=== PATIENT | female | born 1970 | race African-American/Black ===

== ENCOUNTER 2019-01-09 12:23 | Inpatient (IN) | payer MEDICARE, MEDICAID ==
[~2019-01-09] VITALS: Ht 162.6 cm; Wt 50.1 kg
[2019-01-09 13:41] LABS: BASOPHILS % 0.8 % (0.0-2.0); EOSINOPHILS % 1.8 % (0.0-5.0); HEMATOCRIT. 43.6 % (36.0-48.0); HEMOGLOBIN. 13.9 g/dL (12.0-16.0); LYMPHOCYTES % 17.9 % (20.0-50.0); MEAN CORPUSCULAR HEMOGLOBIN 29.9 pg (28.0-32.0); MEAN CORPUSCULAR VOLUME 93.6 fL (81.0-99.0); MEAN PLATELET VOLUME 8.6 fl (7.4-10.4); MONOCYTES % 7.8 % (2.0-8.0); NEUTROPHILS % 71.7 % (40.0-76.0); PLATELET 278 x1000/uL (130-400); RED BLOOD CELL COUNT 4.66 mill/uL (4.2-5.4); RED CELL DISTRIBUTION WIDTH 15.4 % (11.6-14.6)
[2019-01-09 13:47] LABS: CHLORIDE 104 mEq/L (98-107)
[2019-01-09 13:51] LABS: ETHANOL BLOOD < 10 mg/dL
[2019-01-09 14:11] LABS: HCG SCREEN NEGATIVE
[2019-01-09 15:02] LABS: BG BASE EXCESS 8.9 mmol/L (-2.0-2.0); BG CARBOXYHEMOGLOBIN 0.8 % (0.5-1.5); BG DEOXYHEMOGLOBIN 2.3 % (0.0-5.0); BG FRACTION INSPIRED OXYGEN 28; BG HCO3 ACT 41.7 mmol/L (22.0-26.0); BG METHEMOGLOBIN 0.4 % (0.0-1.5); BG OXYGEN SATURATION 97.7 % (92.0-98.5); BG OXYHEMOGLOBIN 96.5 % (94.0-97.0); BG PCO2 116.9 mmHg (35.0-45.0); BG PO2 114.2 mmHg (75.0-100.0); BG SAMPLE SITE RIGHT BRACHIAL; BG VENT MODE NASAL CANNULA
[2019-01-09] MEDS ORDERED: ALBUTEROL (0.083%) 2.5MG/3ML NEB HHN STA (15:13)
[2019-01-09] MEDS ORDERED: METHYLPREDNISOLONE SOD SUCC 125 MG/2 ML VIAL IV STA (15:13)
[2019-01-09 16:09] LABS: CLARITY URINE CLOUDY (CLEAR); COLOR URINE YELLOW (YELLOW); KETONES URINE TRACE (NEGATIVE); LEUKOCYTE ESTERASE URINE 2+ (NEGATIVE); NITRITE URINE NEGATIVE (NEGATIVE); OCCULT BLOOD URINE NEGATIVE (NEGATIVE); PH URINE 6.5 (4.5-8.0); PROTEIN URINE NEGATIVE (NEGATIVE); SPECIFIC GRAVITY URINE 1.027 (1.005-1.030)
[2019-01-09] MEDS ORDERED: SODIUM CHLORIDE 0.9% 1,000 ML IV ONE (16:15)
[2019-01-09 16:25] LABS: *AMPHETAMINES SCREEN URINE NEGATIVE (NEGATIVE); *BENZODIAZEPINES SCREEN URINE NEGATIVE (NEGATIVE); *COCAINE SCREEN URINE NEGATIVE (NEGATIVE)
[2019-01-09 16:26] LABS: CANNABINOID URINE SCREEN NEGATIVE (NEGATIVE); METHADONE URINE SCREEN NEGATIVE (NEGATIVE); OPIATES URINE SCREEN NEGATIVE (NEGATIVE); PHENCYCLIDINE URINE SCREEN NEGATIVE (NEGATIVE)
[2019-01-09 16:28] LABS: *BARBITURATES SCREEN URINE NEGATIVE (NEGATIVE)
[2019-01-09] MEDS ORDERED: CEFTRIAXONE 1 G PREMIX 50 ML IV ONE (16:30)
[2019-01-09 16:50] LABS: BG BILEVEL POS AIRWAY PRESSURE 18/5; BG CARBOXYHEMOGLOBIN 0.7 % (0.5-1.5); BG DEOXYHEMOGLOBIN 0.4 % (0.0-5.0); BG FRACTION INSPIRED OXYGEN 50; BG HCO3 ACT 31.5 mmol/L (22.0-26.0); BG METHEMOGLOBIN 0.3 % (0.0-1.5); BG OXYGEN SATURATION 99.6 % (92.0-98.5); BG OXYHEMOGLOBIN 98.6 % (94.0-97.0); BG PCO2 49.5 mmHg (35.0-45.0); BG PH 7.421 (7.350-7.450); BG PO2 315.4 mmHg (75.0-100.0); BG SAMPLE SITE RIGHT BRACHIAL; BG TOTAL HEMOGLOBIN 12.1 g/dL (12.0-18.0); BG VENT MODE MASK - BIPAP
[2019-01-09] MEDS ORDERED: IPRATROPIUM/ALBUTEROL 0.5-3(2.5)MG/3ML NEB INH SCH (17:45)
[2019-01-09] MEDS ORDERED: NA PHOS,M-B/NA PHOS,DI-BA ENEMA 118ML PR PRN (17:45)
[2019-01-09] MEDS ORDERED: IPRATROPIUM/ALBUTEROL 0.5-3(2.5)MG/3ML NEB INH PRN (17:45)
[2019-01-09] MEDS ORDERED: MAGNESIUM/ALUMINUM HYDROXIDE/SIMETHICONE 30ML UDC PO PRN (17:45)
[2019-01-09] MEDS ORDERED: GUAIFENESIN 200MG/10ML SUGAR FREE UDC PO PRN (17:45)
[2019-01-09] MEDS ORDERED: ONDANSETRON HCL 4MG/2ML INJ IV PRN (17:45)
[2019-01-09] MEDS: METHYLPREDNISOLONE SOD SUCC 125 MG/2 ML VIAL IV SCH (22:00)
[2019-01-09] MEDS: SODIUM CHLORIDE 0.9% INJ 3ML FLUSH IVF SCH (22:00)
[2019-01-09 23:48] LABS: CREATINE KINASE 22 IU/L (26-192)
[2019-01-09 23:55] LABS: CREATINE KINASE MB FRACTION 1.2 ng/mL (0.5-3.6)
[2019-01-10 05:23] LABS: CHLORIDE 105 mEq/L (98-107)
[2019-01-10 05:34] LABS: LDL CHOLESTEROL 61 mg/dL (5-100)
[2019-01-10 05:35] LABS: CREATINE KINASE 24 IU/L (26-192)
[2019-01-10 05:37] LABS: HDL CHOLESTEROL 51 mg/dL (40-59)
[2019-01-10 05:40] LABS: CREATINE KINASE MB FRACTION 1.1 ng/mL (0.5-3.6)
[2019-01-10] MEDS: SODIUM CHLORIDE 0.9% INJ 3ML FLUSH IVF SCH ×3 (06:00→22:00)
[2019-01-10 06:16] LABS: BASOPHILS % 0.4 % (0.0-2.0); EOSINOPHILS % 0.6 % (0.0-5.0); HEMATOCRIT. 32.7 % (36.0-48.0); LYMPHOCYTES % 24.8 % (20.0-50.0); MEAN CORPUSCULAR HEMOGLOBIN 29.5 pg (28.0-32.0); MEAN CORPUSCULAR VOLUME 90.8 fL (81.0-99.0); MEAN PLATELET VOLUME 7.8 fl (7.4-10.4); MONOCYTES % 8.4 % (2.0-8.0); NEUTROPHILS % 65.8 % (40.0-76.0); PLATELET 250 x1000/uL (130-400); RED BLOOD CELL COUNT 3.61 mill/uL (4.2-5.4); RED CELL DISTRIBUTION WIDTH 15.1 % (11.6-14.6)
[2019-01-10 06:18] LABS: HEMOGLOBIN. 10.7 g/dL (12.0-16.0)
[2019-01-10 10:23] LABS: BG BASE EXCESS 5.2 mmol/L (-2.0-2.0); BG CARBOXYHEMOGLOBIN 0.1 % (0.5-1.5); BG DEOXYHEMOGLOBIN 0.7 % (0.0-5.0); BG FRACTION INSPIRED OXYGEN 38; BG HCO3 ACT 30.3 mmol/L (22.0-26.0); BG METHEMOGLOBIN 0.4 % (0.0-1.5); BG OXYGEN SATURATION 99.3 % (92.0-98.5); BG OXYHEMOGLOBIN 98.8 % (94.0-97.0); BG PCO2 46.6 mmHg (35.0-45.0); BG PH 7.431 (7.350-7.450); BG PO2 226.5 mmHg (75.0-100.0); BG SAMPLE SITE RIGHT BRACHIAL; BG TOTAL HEMOGLOBIN 11.5 g/dL (12.0-18.0); BG VENT MODE NASAL CANNULA
[2019-01-10] MEDS: METHYLPREDNISOLONE SOD SUCC 125 MG/2 ML VIAL IV SCH ×4 (12:00→22:00)
[2019-01-10] MEDS ORDERED: IPRATROPIUM/ALBUTEROL 0.5-3(2.5)MG/3ML NEB HHN SCH (16:00)
[2019-01-10] MEDS: ACETAMINOPHEN 325MG TABLET PO PRN ×2 (16:15→20:22)
[2019-01-10] MEDS ORDERED: POTASSIUM CHLORIDE 20MEQ TABLET SR PO PRN (17:30)
[2019-01-10] MEDS ORDERED: POTASSIUM CHLORIDE 20MEQ TABLET SR PO NR (20:00)
[2019-01-10 21:30] VITALS: BP 125/99
[2019-01-10] MEDS ORDERED: GABA-531 PO (21:39)
[2019-01-10] MEDS ORDERED: ABIL10 MT (21:39)
[2019-01-10] MEDS ORDERED: DIVA500T3 PO (21:39)
[2019-01-10] MEDS ORDERED: TRAZ-213 MT (21:39)
[2019-01-10] MEDS: TRAZODONE HCL 50MG TABLET PO SCH (23:10)
[2019-01-10] MEDS: GABAPENTIN 300MG CAPSULE PO SCH (23:10)
[2019-01-10 23:42] VITALS: BP 128/78
[2019-01-11] VITALS: BP 126/84
[2019-01-11] MEDS: IPRATROPIUM/ALBUTEROL 0.5-3(2.5)MG/3ML NEB HHN SCH ×2 (00:25→10:20)
[2019-01-11 04:00] VITALS: BP_SYST 115; BP_SYST 128; BP_DIAS 73; BP_DIAS 86
[2019-01-11] MEDS: METHYLPREDNISOLONE SOD SUCC 125 MG/2 ML VIAL IV SCH ×2 (04:47→09:13)
[2019-01-11] MEDS: SODIUM CHLORIDE 0.9% INJ 3ML FLUSH IVF SCH ×3 (06:26→21:59)
[2019-01-11 08:00] VITALS: BP 118/77
[2019-01-11 08:42] LABS: BG BASE EXCESS 5.7 mmol/L (-2.0-2.0); BG CARBOXYHEMOGLOBIN 0.3 % (0.5-1.5); BG DEOXYHEMOGLOBIN 3.7 % (0.0-5.0); BG FRACTION INSPIRED OXYGEN 21; BG HCO3 ACT 31.6 mmol/L (22.0-26.0); BG METHEMOGLOBIN 0.6 % (0.0-1.5); BG OXYGEN SATURATION 96.3 % (92.0-98.5); BG OXYHEMOGLOBIN 95.4 % (94.0-97.0); BG PCO2 51.4 mmHg (35.0-45.0); BG PH 7.406 (7.350-7.450); BG PO2 85.4 mmHg (75.0-100.0); BG SAMPLE SITE LEFT BRACHIAL; BG TOTAL HEMOGLOBIN 12.5 g/dL (12.0-18.0); BG VENT MODE ROOM AIR
[2019-01-11] MEDS ORDERED: ARIPIPRAZOLE 10MG TABLET PO SCH (09:00)
[2019-01-11] MEDS: DIVALPROEX SODIUM 250MG DR TABLET PO SCH ×2 (09:13→21:58)
[2019-01-11] MEDS: GABAPENTIN 300MG CAPSULE PO SCH ×2 (09:13→19:19)
[2019-01-11 12:00] VITALS: BP 128/84
[2019-01-11 13:16] LABS: HEMOGLOBIN. 11.9 g/dL (12.0-16.0); MEAN CORPUSCULAR HEMOGLOBIN 29.4 pg (28.0-32.0); MEAN CORPUSCULAR VOLUME 91.6 fL (81.0-99.0); MEAN PLATELET VOLUME 8.7 fl (7.4-10.4); PLATELET 282 x1000/uL (130-400); RED BLOOD CELL COUNT 4.04 mill/uL (4.2-5.4); RED CELL DISTRIBUTION WIDTH 15.3 % (11.6-14.6)
[2019-01-11 13:22] LABS: CHLORIDE 102 mEq/L (98-107)
[2019-01-11] MEDS: CEFTRIAXONE 1 G PREMIX 50 ML IV SCH (13:43)
[2019-01-11] MEDS: IPRATROPIUM BROMIDE (0.02%) 0.5MG/2.5ML NEB HHN SCH ×2 (15:34→21:11)
[2019-01-11 16:00] VITALS: BP 116/83
[2019-01-11] MEDS ORDERED: IOHEXOL-350 100 ML BOTTLE ONE (18:36)
[2019-01-11 20:00] VITALS: BP 120/76
[2019-01-11 20:09] LABS: CLARITY URINE CLEAR (CLEAR); COLOR URINE YELLOW (YELLOW); KETONES URINE NEGATIVE (NEGATIVE); LEUKOCYTE ESTERASE URINE 2+ (NEGATIVE); NITRITE URINE NEGATIVE (NEGATIVE); OCCULT BLOOD URINE NEGATIVE (NEGATIVE); PROTEIN URINE NEGATIVE (NEGATIVE); SPECIFIC GRAVITY URINE 1.017 (1.005-1.030); UROBILINOGEN URINE 0.2 E.U./dL (0.2-1.0)
[2019-01-11 21:13] LABS: PLATELET ESTIMATE NORMAL
[2019-01-11] MEDS: METHYLPREDNISOLONE SOD SUCC 40 MG/ML VIAL IV SCH (21:58)
[2019-01-11] MEDS: TRAZODONE HCL 50MG TABLET PO SCH (21:59)
[2019-01-12] VITALS: BP 112/71
[2019-01-12] MEDS: IPRATROPIUM BROMIDE (0.02%) 0.5MG/2.5ML NEB HHN SCH ×4 (00:59→21:30)
[2019-01-12 04:00] VITALS: BP 130/82
[2019-01-12] MEDS: SODIUM CHLORIDE 0.9% INJ 3ML FLUSH IVF SCH ×3 (06:07→22:28)
[2019-01-12 08:00] VITALS: BP 121/81
[2019-01-12 08:45] LABS: BASOPHILS % 0.2 % (0.0-2.0); HEMATOCRIT. 36.7 % (36.0-48.0); HEMOGLOBIN. 11.9 g/dL (12.0-16.0); LYMPHOCYTES % 15.6 % (20.0-50.0); MEAN CORPUSCULAR HEMOGLOBIN 29.8 pg (28.0-32.0); MEAN CORPUSCULAR VOLUME 91.7 fL (81.0-99.0); MEAN PLATELET VOLUME 8.2 fl (7.4-10.4); MONOCYTES % 6.2 % (2.0-8.0); PLATELET 261 x1000/uL (130-400); RED CELL DISTRIBUTION WIDTH 14.7 % (11.6-14.6)
[2019-01-12] MEDS: GABAPENTIN 300MG CAPSULE PO SCH ×2 (08:56→15:55)
[2019-01-12] MEDS: ARIPIPRAZOLE 10MG TABLET PO SCH (08:56)
[2019-01-12] MEDS: METHYLPREDNISOLONE SOD SUCC 40 MG/ML VIAL IV SCH (08:57)
[2019-01-12] MEDS: DIVALPROEX SODIUM 250MG DR TABLET PO SCH ×2 (09:02→20:47)
[2019-01-12 09:06] LABS: CHLORIDE 100 mEq/L (98-107)
[2019-01-12] MEDS: ACETAMINOPHEN 325MG TABLET PO PRN ×3 (09:06→20:48)
[2019-01-12 12:00] VITALS: BP 117/75
[2019-01-12] MEDS: CEFTRIAXONE 1 G PREMIX 50 ML IV SCH (12:48)
[2019-01-12] MEDS: DOCUSATE SODIUM 100MG CAPSULE PO PRN (13:32)
[2019-01-12] MEDS ORDERED: IPRA3AMP9 INH (14:49)
[2019-01-12] MEDS ORDERED: P20 PO (14:49)
[2019-01-12] MEDS: METOPROLOL TARTRATE 25MG TABLET PO SCH ×2 (15:56→20:47)
[2019-01-12 16:00] VITALS: BP 135/85
[2019-01-12 20:00] VITALS: BP 118/81
[2019-01-12] MEDS: TRAZODONE HCL 50MG TABLET PO SCH (20:47)
[2019-01-12] MEDS: MEGESTROL ACETATE 400 MG/10 ML UDC PO SCH (20:51)
[2019-01-13] VITALS (7 sets, daily range): BP systolic 93–126; BP diastolic 57–82
[2019-01-13] MEDS: ACETAMINOPHEN 325MG TABLET PO PRN ×3 (00:39→23:24)
[2019-01-13] MEDS: IPRATROPIUM BROMIDE (0.02%) 0.5MG/2.5ML NEB HHN SCH ×2 (01:28→21:56)
[2019-01-13] MEDS: MEGESTROL ACETATE 400 MG/10 ML UDC PO SCH ×4 (03:41→20:25)
[2019-01-13] MEDS: SODIUM CHLORIDE 0.9% INJ 3ML FLUSH IVF SCH ×3 (06:42→21:49)
[2019-01-13 07:21] LABS: VITAMIN B12 SERUM 469 pg/mL (211-911)
[2019-01-13] MEDS: METOPROLOL TARTRATE 25MG TABLET PO SCH ×2 (09:00→20:26)
[2019-01-13] MEDS: PREDNISONE 20MG TABLET PO SCH (10:32)
[2019-01-13] MEDS: GABAPENTIN 300MG CAPSULE PO SCH ×2 (10:32→18:24)
[2019-01-13] MEDS: DIVALPROEX SODIUM 250MG DR TABLET PO SCH ×2 (10:33→20:26)
[2019-01-13] MEDS: ARIPIPRAZOLE 10MG TABLET PO SCH (10:33)
[2019-01-13] MEDS: CEFTRIAXONE 1 G PREMIX 50 ML IV SCH (13:35)
[2019-01-13] MEDS ORDERED: OLANZAPINE 10MG TABLET PO SCH (15:45)
[2019-01-13] MEDS ORDERED: METOPROLOL TARTRATE 25MG TABLET PO NR (17:00)
[2019-01-13 20:00] LABS: BASOPHILS % 0.4 % (0.0-2.0); HEMATOCRIT. 38.6 % (36.0-48.0); HEMOGLOBIN. 12.5 g/dL (12.0-16.0); LYMPHOCYTES % 14.7 % (20.0-50.0); MEAN CORPUSCULAR HEMOGLOBIN 29.4 pg (28.0-32.0); MEAN CORPUSCULAR VOLUME 90.7 fL (81.0-99.0); MEAN PLATELET VOLUME 8.1 fl (7.4-10.4); MONOCYTES % 6.8 % (2.0-8.0); NEUTROPHILS % 78.1 % (40.0-76.0); PLATELET 261 x1000/uL (130-400); RED BLOOD CELL COUNT 4.26 mill/uL (4.2-5.4); RED CELL DISTRIBUTION WIDTH 14.7 % (11.6-14.6)
[2019-01-13 20:05] LABS: CHLORIDE 100 mEq/L (98-107)
[2019-01-13 20:14] LABS: INR 1.1; PROTHROMBIN TIME 10.8 sec (9.1-11.1)
[2019-01-13] MEDS: TRAZODONE HCL 50MG TABLET PO SCH (20:27)
[2019-01-13] MEDS: DIPHENHYDRAMINE 50MG/ML VIAL IV PRN (23:12)
[2019-01-14] VITALS: BP 119/74
[2019-01-14] MEDS: IPRATROPIUM BROMIDE (0.02%) 0.5MG/2.5ML NEB HHN SCH ×4 (01:57→20:24)
[2019-01-14] MEDS: MEGESTROL ACETATE 400 MG/10 ML UDC PO SCH ×4 (02:31→20:18)
[2019-01-14 04:00] VITALS: BP 122/82
[2019-01-14 07:34] LABS: BASOPHILS % 0.3 % (0.0-2.0); EOSINOPHILS % 0.3 % (0.0-5.0); HEMATOCRIT. 38.1 % (36.0-48.0); HEMOGLOBIN. 12.5 g/dL (12.0-16.0); MEAN CORPUSCULAR HEMOGLOBIN 29.4 pg (28.0-32.0); MEAN CORPUSCULAR VOLUME 89.6 fL (81.0-99.0); MONOCYTES % 7.4 % (2.0-8.0); PLATELET 248 x1000/uL (130-400); RED BLOOD CELL COUNT 4.26 mill/uL (4.2-5.4); RED CELL DISTRIBUTION WIDTH 14.4 % (11.6-14.6)
[2019-01-14 07:58] LABS: CHLORIDE 102 mEq/L (98-107)
[2019-01-14 08:00] VITALS: BP 132/92
[2019-01-14] MEDS: TRAZODONE HCL 50MG TABLET PO SCH (09:34)
[2019-01-14] MEDS: ACETAMINOPHEN 325MG TABLET PO PRN ×2 (09:35→17:47)
[2019-01-14] MEDS: ARIPIPRAZOLE 10MG TABLET PO SCH (09:35)
[2019-01-14] MEDS: DIVALPROEX SODIUM 250MG DR TABLET PO SCH ×2 (09:36→20:47)
[2019-01-14] MEDS: DOCUSATE SODIUM 100MG CAPSULE PO PRN (09:37)
[2019-01-14] MEDS: PREDNISONE 20MG TABLET PO SCH (09:37)
[2019-01-14] MEDS: CLONIDINE 0.1MG TABLET PO PRN (09:37)
[2019-01-14] MEDS: METOPROLOL TARTRATE 25MG TABLET PO SCH ×2 (09:38→20:47)
[2019-01-14] MEDS: GABAPENTIN 300MG CAPSULE PO SCH ×2 (09:41→18:40)
[2019-01-14 12:00] VITALS: BP 128/89
[2019-01-14] MEDS: SODIUM CHLORIDE 0.9% INJ 3ML FLUSH IVF SCH (14:00)
[2019-01-14] MEDS ORDERED: POTASSIUM CHLORIDE 20MEQ TABLET SR PO PRN (16:00)
[2019-01-14] MEDS ORDERED: BARIUM SULFATE 176 GM SUSP.RECON ONE (16:02)
[2019-01-14 16:33] VITALS: BP 112/63
[2019-01-14 20:00] VITALS: BP 114/75
[2019-01-15] VITALS: BP 118/73
[2019-01-15] MEDS: IPRATROPIUM BROMIDE (0.02%) 0.5MG/2.5ML NEB HHN SCH ×2 (02:18→20:57)
[2019-01-15] MEDS: MEGESTROL ACETATE 400 MG/10 ML UDC PO SCH ×4 (02:30→20:30)
[2019-01-15 04:00] VITALS: BP 121/71
[2019-01-15 08:00] VITALS: BP 134/83
[2019-01-15] MEDS: FAMOTIDINE 20MG/2ML VIAL IV SCH ×2 (09:00→22:45)
[2019-01-15] MEDS: DIVALPROEX SODIUM 250MG DR TABLET PO SCH ×2 (09:00→21:00)
[2019-01-15] MEDS: METOPROLOL TARTRATE 25MG TABLET PO SCH ×2 (09:00→21:00)
[2019-01-15] MEDS: ARIPIPRAZOLE 10MG TABLET PO SCH (09:00)
[2019-01-15] MEDS: PREDNISONE 20MG TABLET PO SCH (09:00)
[2019-01-15] MEDS: GABAPENTIN 300MG CAPSULE PO SCH ×2 (09:00→17:00)
[2019-01-15] MEDS ORDERED: SKIN ADHESIVE 0.7 GM EA TOP ONE (09:07)
[2019-01-15] MEDS ORDERED: BUPIVACAINE HCL/PF 0.5% (5MG/ML) 10ML ONE (09:07)
[2019-01-15] MEDS ORDERED: FENTANYL CITRATE/PF 50MCG/ML 2ML VIAL ONE (09:12)
[2019-01-15] MEDS ORDERED: MIDAZOLAM HCL 2 MG/2 ML VIAL ONE (09:15)
[2019-01-15] MEDS ORDERED: SUCCINYLCHOLINE CHLORIDE 200MG/10ML IV ONE ×2 (09:32→10:27)
[2019-01-15] MEDS: CEFAZOLIN 1000MG PREMIX 50 ML IV SCH ×2 (10:00→17:40)
[2019-01-15] MEDS: DEXT 5%/0.45% NACL KCL 20MEQ/L 1,000 ML IV SCH ×2 (10:00→14:48)
[2019-01-15] MEDS: METRONIDAZOLE 500 MG PREMIX 100 ML IV SCH ×2 (10:00→17:41)
[2019-01-15] MEDS ORDERED: NALOXONE HCL 0.4 MG/ML 1ML VIAL ONE (10:38)
[2019-01-15] MEDS ORDERED: KETOROLAC 30MG/ML VIAL IV PRN (10:45)
[2019-01-15] MEDS: ACETAMINOPHEN 500MG TABLET PO SCH ×2 (10:45→17:42)
[2019-01-15] MEDS ORDERED: ONDANSETRON HCL 4MG/2ML INJ IV PRN (10:45)
[2019-01-15] MEDS: HYDROMORPHONE HCL/PF 2MG/ML CPJ IV PRN ×4 (10:56→12:43)
[2019-01-15] MEDS: SODIUM CHLORIDE 0.9% INJ 3ML FLUSH IVF SCH (14:53)
[2019-01-15 20:00] VITALS: BP 120/75
[2019-01-15] MEDS: MORPHINE SULFATE 4 MG/ML CPJ (NOT FOR IM USE) IV PRN (20:06)
[2019-01-15] MEDS: DIPHENHYDRAMINE 50MG/ML VIAL IV PRN (20:20)
[2019-01-15] MEDS: TRAZODONE HCL 50MG TABLET PO SCH (21:00)
[2019-01-16] VITALS: BP 120/84
[2019-01-16] MEDS: MORPHINE SULFATE 4 MG/ML CPJ (NOT FOR IM USE) IV PRN ×2 (00:07→09:23)
[2019-01-16] MEDS: DIPHENHYDRAMINE 50MG/ML VIAL IV PRN (00:12)
[2019-01-16] MEDS: IPRATROPIUM BROMIDE (0.02%) 0.5MG/2.5ML NEB HHN SCH ×4 (01:09→22:21)
[2019-01-16] MEDS: CEFAZOLIN 1000MG PREMIX 50 ML IV SCH ×3 (01:24→18:04)
[2019-01-16] MEDS: ACETAMINOPHEN 500MG TABLET PO SCH ×2 (02:00→09:24)
[2019-01-16] MEDS: MEGESTROL ACETATE 400 MG/10 ML UDC PO SCH ×4 (02:30→20:37)
[2019-01-16 04:00] VITALS: BP 130/84
[2019-01-16] MEDS: DEXT 5%/0.45% NACL KCL 20MEQ/L 1,000 ML IV SCH ×2 (04:48→16:27)
[2019-01-16] MEDS: METRONIDAZOLE 500 MG PREMIX 100 ML IV SCH ×2 (04:49→14:24)
[2019-01-16 08:00] VITALS: BP 123/90
[2019-01-16] MEDS: PREDNISONE 20MG TABLET PO SCH (09:21)
[2019-01-16] MEDS: GABAPENTIN 300MG CAPSULE PO SCH ×2 (09:22→16:19)
[2019-01-16] MEDS: DIVALPROEX SODIUM 250MG DR TABLET PO SCH ×2 (09:22→20:37)
[2019-01-16] MEDS: ARIPIPRAZOLE 10MG TABLET PO SCH (09:23)
[2019-01-16] MEDS: FAMOTIDINE 20MG/2ML VIAL IV SCH ×2 (09:23→20:38)
[2019-01-16] MEDS: METOPROLOL TARTRATE 25MG TABLET PO SCH ×2 (09:24→20:37)
[2019-01-16] MEDS: ACETAMINOPHEN 325MG TABLET PO PRN (10:22)
[2019-01-16 12:00] VITALS: BP 120/79
[2019-01-16 16:00] VITALS: BP 118/68
[2019-01-16] MEDS ORDERED: OLANZAPINE 5MG TABLET PO SCH (17:00)
[2019-01-16 20:00] VITALS: BP 122/81
[2019-01-16] MEDS: TRAZODONE HCL 50MG TABLET PO SCH (20:36)
[2019-01-16] MEDS: SODIUM CHLORIDE 0.9% INJ 3ML FLUSH IVF SCH (21:31)
[2019-01-17] MEDS: ONDANSETRON HCL 4MG/2ML INJ IV PRN ×3 (00:04→21:03)
[2019-01-17] MEDS: MORPHINE SULFATE 4 MG/ML CPJ (NOT FOR IM USE) IV PRN ×2 (00:05→21:05)
[2019-01-17 00:31] VITALS: BP 123/78
[2019-01-17] MEDS: DEXT 5%/0.45% NACL KCL 20MEQ/L 1,000 ML IV SCH ×3 (01:12→23:13)
[2019-01-17] MEDS: CEFAZOLIN 1000MG PREMIX 50 ML IV SCH ×3 (01:12→18:49)
[2019-01-17] MEDS: ACETAMINOPHEN 500MG TABLET PO SCH ×3 (01:13→18:00)
[2019-01-17] MEDS: MEGESTROL ACETATE 400 MG/10 ML UDC PO SCH ×4 (02:30→21:03)
[2019-01-17] MEDS: IPRATROPIUM BROMIDE (0.02%) 0.5MG/2.5ML NEB HHN SCH ×3 (03:13→14:57)
[2019-01-17 04:00] VITALS: BP 120/82
[2019-01-17] MEDS: SODIUM CHLORIDE 0.9% INJ 3ML FLUSH IVF SCH ×3 (05:28→23:12)
[2019-01-17 08:00] VITALS: BP 130/84
[2019-01-17] MEDS: ARIPIPRAZOLE 10MG TABLET PO SCH (09:26)
[2019-01-17] MEDS: PREDNISONE 20MG TABLET PO SCH (09:26)
[2019-01-17] MEDS: FAMOTIDINE 20MG/2ML VIAL IV SCH ×2 (09:26→21:03)
[2019-01-17] MEDS: GABAPENTIN 300MG CAPSULE PO SCH ×2 (09:26→17:00)
[2019-01-17] MEDS: DIVALPROEX SODIUM 250MG DR TABLET PO SCH ×2 (09:26→21:03)
[2019-01-17] MEDS: METOPROLOL TARTRATE 25MG TABLET PO SCH ×2 (09:34→21:04)
[2019-01-17 12:00] VITALS: BP 125/81
[2019-01-17] MEDS ORDERED: DIGOXIN 500MCG/2ML AMP IV SCH (14:00)
[2019-01-17 14:36] LABS: HEMATOCRIT. 36.5 % (36.0-48.0); HEMOGLOBIN. 11.9 g/dL (12.0-16.0); MEAN CORPUSCULAR HEMOGLOBIN 29.9 pg (28.0-32.0); MEAN CORPUSCULAR VOLUME 91.6 fL (81.0-99.0); MEAN PLATELET VOLUME 8.3 fl (7.4-10.4); PLATELET 209 x1000/uL (130-400); RED BLOOD CELL COUNT 3.99 mill/uL (4.2-5.4); RED CELL DISTRIBUTION WIDTH 14.5 % (11.6-14.6)
[2019-01-17 16:00] VITALS: BP 118/74
[2019-01-17 16:45] LABS: INR 1.1; PROTHROMBIN TIME 10.7 sec (9.1-11.1)
[2019-01-17 20:00] VITALS: BP 128/94
[2019-01-17] MEDS: TRAZODONE HCL 50MG TABLET PO SCH (21:03)
[2019-01-17 21:10] LABS: CHLORIDE 101 mEq/L (98-107)
[2019-01-17] MEDS ORDERED: SODIUM CHLORIDE 0.9% 1000ML BAG (SEPSIS BOLUS) IV NR (22:30)
[2019-01-17 23:05] LABS: CLARITY URINE CLEAR (CLEAR); COLOR URINE YELLOW (YELLOW); KETONES URINE NEGATIVE (NEGATIVE); LEUKOCYTE ESTERASE URINE 2+ (NEGATIVE); NITRITE URINE NEGATIVE (NEGATIVE); OCCULT BLOOD URINE NEGATIVE (NEGATIVE); PROTEIN URINE NEGATIVE (NEGATIVE); SPECIFIC GRAVITY URINE 1.022 (1.005-1.030); UROBILINOGEN URINE 0.2 E.U./dL (0.2-1.0)
[2019-01-17] MEDS: METOCLOPRAMIDE HCL 10MG/2ML VIAL IV SCH (23:12)
[2019-01-18] VITALS (7 sets, daily range): BP systolic 135–148; BP diastolic 77–89
[2019-01-18] MEDS: ACETAMINOPHEN 500MG TABLET PO SCH ×2 (01:00→11:44)
[2019-01-18] MEDS: CEFAZOLIN 1000MG PREMIX 50 ML IV SCH ×2 (01:00→12:10)
[2019-01-18] MEDS: MEGESTROL ACETATE 400 MG/10 ML UDC PO SCH ×2 (01:52→11:35)
[2019-01-18] MEDS: SODIUM CHLORIDE 0.9% INJ 3ML FLUSH IVF SCH ×3 (05:07→23:44)
[2019-01-18] MEDS: METOCLOPRAMIDE HCL 10MG/2ML VIAL IV SCH ×2 (05:07→13:03)
[2019-01-18 05:29] LABS: PLATELET ESTIMATE NORMAL
[2019-01-18 06:56] LABS: HEMATOCRIT. 38.5 % (36.0-48.0); HEMOGLOBIN. 12.3 g/dL (12.0-16.0); MEAN CORPUSCULAR HEMOGLOBIN 29.3 pg (28.0-32.0); MEAN CORPUSCULAR VOLUME 91.4 fL (81.0-99.0); MEAN PLATELET VOLUME 9.5 fl (7.4-10.4); PLATELET 232 x1000/uL (130-400); RED BLOOD CELL COUNT 4.21 mill/uL (4.2-5.4); RED CELL DISTRIBUTION WIDTH 14.1 % (11.6-14.6)
[2019-01-18 07:44] LABS: CHLORIDE 100 mEq/L (98-107)
[2019-01-18] MEDS: IPRATROPIUM BROMIDE (0.02%) 0.5MG/2.5ML NEB HHN SCH ×3 (09:18→20:58)
[2019-01-18] MEDS: DIVALPROEX SODIUM 250MG DR TABLET PO SCH ×2 (11:17→20:56)
[2019-01-18] MEDS: ARIPIPRAZOLE 10MG TABLET PO SCH (11:19)
[2019-01-18] MEDS: GABAPENTIN 300MG CAPSULE PO SCH (11:19)
[2019-01-18] MEDS: FAMOTIDINE 20MG/2ML VIAL IV SCH (11:21)
[2019-01-18] MEDS: METOPROLOL TARTRATE 25MG TABLET PO SCH (11:35)
[2019-01-18 11:58] LABS: PLATELET ESTIMATE NORMAL
[2019-01-18] MEDS ORDERED: OLAN10TA3 PO (13:24)
[2019-01-18] MEDS: DEXT 5%/0.45% NACL KCL 20MEQ/L 1,000 ML IV SCH (14:44)
[2019-01-18] MEDS: OLANZAPINE 10MG TABLET PO SCH (14:49)
[2019-01-18 15:19] LABS: BG BASE EXCESS 4.9 mmol/L (-2.0-2.0); BG CARBOXYHEMOGLOBIN 0.9 % (0.5-1.5); BG DEOXYHEMOGLOBIN 10.1 % (0.0-5.0); BG FRACTION INSPIRED OXYGEN 21; BG HCO3 ACT 32.1 mmol/L (22.0-26.0); BG METHEMOGLOBIN 0.4 % (0.0-1.5); BG OXYGEN SATURATION 89.8 % (92.0-98.5); BG OXYHEMOGLOBIN 88.6 % (94.0-97.0); BG PCO2 58.6 mmHg (35.0-45.0); BG PH 7.356 (7.350-7.450); BG PO2 58.4 mmHg (75.0-100.0); BG SAMPLE SITE RIGHT BRACHIAL; BG TOTAL HEMOGLOBIN 13.5 g/dL (12.0-18.0); BG VENT MODE ROOM AIR
[2019-01-18] MEDS ORDERED: METO-539 MT (15:40)
[2019-01-18] MEDS ORDERED: ATROV INH (15:43)
[2019-01-18] MEDS ORDERED: P20 MT (15:44)
[2019-01-18] MEDS ORDERED: DIPHENHYDRAMINE 50MG/ML VIAL IM PRN (15:45)
[2019-01-18] MEDS: PANTOPRAZOLE 40MG DR TABLET PO SCH (19:21)
[2019-01-18] MEDS: ONDANSETRON HCL 4MG/2ML INJ IV PRN (19:47)
[2019-01-18] MEDS ORDERED: DIGOXIN 500MCG/2ML AMP IV SCH (20:30)
[2019-01-18] MEDS: TRAZODONE HCL 50MG TABLET PO SCH (20:56)
[2019-01-18] MEDS: METOPROLOL TARTRATE 50MG TABLET PO SCH (20:57)
[2019-01-18] MEDS: METOCLOPRAMIDE HCL 5MG TABLET PO SCH (23:43)
[2019-01-19] VITALS (7 sets, daily range): BP systolic 97–149; BP diastolic 61–95
[2019-01-19] MEDS: IPRATROPIUM BROMIDE (0.02%) 0.5MG/2.5ML NEB HHN SCH ×4 (01:21→19:57)
[2019-01-19] MEDS: ACETAMINOPHEN 500MG TABLET PO SCH ×3 (02:00→17:57)
[2019-01-19] MEDS: METOCLOPRAMIDE HCL 5MG TABLET PO SCH ×3 (05:31→18:00)
[2019-01-19] MEDS: SODIUM CHLORIDE 0.9% INJ 3ML FLUSH IVF SCH ×3 (05:31→21:37)
[2019-01-19] MEDS: CLONIDINE 0.1MG TABLET PO PRN (06:48)
[2019-01-19] MEDS: ACETAMINOPHEN 325MG TABLET PO PRN (06:49)
[2019-01-19 06:52] LABS: BASOPHILS % 0.1 % (0.0-2.0); EOSINOPHILS % 0.5 % (0.0-5.0); HEMATOCRIT. 40.8 % (36.0-48.0); HEMOGLOBIN. 13.5 g/dL (12.0-16.0); LYMPHOCYTES % 8.4 % (20.0-50.0); MEAN CORPUSCULAR HEMOGLOBIN 29.9 pg (28.0-32.0); MEAN CORPUSCULAR VOLUME 90.6 fL (81.0-99.0); MEAN PLATELET VOLUME 9.6 fl (7.4-10.4); PLATELET 251 x1000/uL (130-400); RED CELL DISTRIBUTION WIDTH 14.1 % (11.6-14.6)
[2019-01-19 07:18] LABS: CHLORIDE 96 mEq/L (98-107)
[2019-01-19] MEDS: PANTOPRAZOLE 40MG DR TABLET PO SCH ×2 (08:32→21:36)
[2019-01-19] MEDS: METOPROLOL TARTRATE 50MG TABLET PO SCH ×3 (09:00→21:36)
[2019-01-19] MEDS: GABAPENTIN 300MG CAPSULE PO SCH ×3 (09:00→17:56)
[2019-01-19] MEDS: DIVALPROEX SODIUM 250MG DR TABLET PO SCH ×2 (10:42→21:36)
[2019-01-19] MEDS: OLANZAPINE 10MG TABLET PO SCH (10:43)
[2019-01-19] MEDS ORDERED: SODIUM CHLORIDE 0.9% 1,000 ML IV SCH (12:30)
[2019-01-19] MEDS ORDERED: PANT40SU MT (12:44)
[2019-01-19] MEDS ORDERED: BISACODYL 10MG SUPP PR PRN (12:45)
[2019-01-19] MEDS ORDERED: BISACODYL 10MG SUPP PR NR (12:45)
[2019-01-19] MEDS ORDERED: METO5TAB86 MT (12:48)
[2019-01-19] MEDS ORDERED: DIGO125T82 MT (15:33)
[2019-01-19] MEDS ORDERED: LACTULOSE 20G/30ML UDC PO NR (17:15)
[2019-01-19] MEDS ORDERED: DIGOXIN 125MCG TABLET PO SCH (18:00)
[2019-01-19] MEDS: BUDESONIDE 0.5MG/2ML NEB HHN SCH (19:57)
[2019-01-19] MEDS ORDERED: DIGOXIN 500MCG/2ML AMP IV NR (20:00)
[2019-01-19] MEDS ORDERED: METHYLPREDNISOLONE SOD SUCC 40 MG/ML VIAL IV SCH (20:00)
[2019-01-19] MEDS ORDERED: DIGOXIN 500MCG/2ML AMP IV SCH (20:00)
[2019-01-19] MEDS: NICOTINE 14MG PATCH TD SCH (20:05)
[2019-01-19 20:20] LABS: BG BASE EXCESS 4.5 mmol/L (-2.0-2.0); BG DEOXYHEMOGLOBIN 1.5 % (0.0-5.0); BG FRACTION INSPIRED OXYGEN 36; BG HCO3 ACT 32.8 mmol/L (22.0-26.0); BG METHEMOGLOBIN 0.4 % (0.0-1.5); BG OXYGEN SATURATION 98.5 % (92.0-98.5); BG OXYHEMOGLOBIN 97.1 % (94.0-97.0); BG PCO2 64.9 mmHg (35.0-45.0); BG PH 7.322 (7.350-7.450); BG PO2 130.6 mmHg (75.0-100.0); BG SAMPLE SITE LEFT RADIAL; BG TOTAL HEMOGLOBIN 15.3 g/dL (12.0-18.0); BG VENT MODE NASAL CANNULA
[2019-01-19] MEDS: TRAZODONE HCL 50MG TABLET PO SCH (21:36)
[2019-01-19] MEDS ORDERED: SODIUM CHLORIDE 0.45% 1,000 ML IV SCH ×2 (22:48→23:00)
[2019-01-19] MEDS: LORAZEPAM 2MG/ML CPJ IV PRN (23:05)
[2019-01-20] VITALS (41 sets, daily range): BP systolic 85–150; BP diastolic 26–95
[2019-01-20] MEDS: METOCLOPRAMIDE HCL 5MG TABLET PO SCH ×2 (00:18→06:00)
[2019-01-20] MEDS: SODIUM CHLORIDE 0.9% INJ 3ML FLUSH IVF SCH ×3 (06:00→21:36)
[2019-01-20] MEDS: METHYLPREDNISOLONE SOD SUCC 40 MG/ML VIAL IV SCH ×2 (06:19→18:40)
[2019-01-20] MEDS: SODIUM CHLORIDE 0.45% 1,000 ML IV SCH ×2 (06:20→23:09)
[2019-01-20] MEDS: LORAZEPAM 2MG/ML CPJ IV PRN (07:17)
[2019-01-20 07:21] LABS: HEMATOCRIT. 42.2 % (36.0-48.0); HEMOGLOBIN. 13.8 g/dL (12.0-16.0); MEAN CORPUSCULAR HEMOGLOBIN 29.8 pg (28.0-32.0); MEAN CORPUSCULAR VOLUME 91.1 fL (81.0-99.0); MEAN PLATELET VOLUME 9.5 fl (7.4-10.4); PLATELET 315 x1000/uL (130-400); RED BLOOD CELL COUNT 4.63 mill/uL (4.2-5.4); RED CELL DISTRIBUTION WIDTH 14.2 % (11.6-14.6)
[2019-01-20 07:31] LABS: CHLORIDE 93 mEq/L (98-107)
[2019-01-20] MEDS ORDERED: PIPERACILLIN/TAZ 2.25G PREMIX 50 ML IV SCH (07:45)
[2019-01-20 07:58] LABS: DIGOXIN 1.1 ng/mL (0.9-2.0)
[2019-01-20] MEDS ORDERED: DILTIAZEM HCL 125 MG in DEXT 5% WATER 100 ML IV PRN (09:00)
[2019-01-20] MEDS: DIVALPROEX SODIUM 250MG DR TABLET PO SCH (09:00)
[2019-01-20 09:17] LABS: BG BASE EXCESS 7.2 mmol/L (-2.0-2.0); BG BILEVEL POS AIRWAY PRESSURE 15/5; BG CARBOXYHEMOGLOBIN 0.6 % (0.5-1.5); BG DEOXYHEMOGLOBIN 1.3 % (0.0-5.0); BG FRACTION INSPIRED OXYGEN 80; BG HCO3 ACT 33.3 mmol/L (22.0-26.0); BG METHEMOGLOBIN 0.3 % (0.0-1.5); BG OXYGEN SATURATION 98.7 % (92.0-98.5); BG OXYHEMOGLOBIN 97.8 % (94.0-97.0); BG PCO2 53.2 mmHg (35.0-45.0); BG PH 7.415 (7.350-7.450); BG PO2 128.4 mmHg (75.0-100.0); BG SAMPLE SITE RIGHT BRACHIAL; BG TOTAL HEMOGLOBIN 14.4 g/dL (12.0-18.0); BG VENT MODE MASK - BIPAP; BG VENT RATE 15 set
[2019-01-20] MEDS ORDERED: VALPROATE SODIUM 250MG/5ML UDC GT SCH (10:15)
[2019-01-20] MEDS: ENOXAPARIN 40MG/0.4ML SYR SUBCUT SCH (10:27)
[2019-01-20] MEDS: METOPROLOL TARTRATE 50MG TABLET PO SCH ×2 (10:28→21:00)
[2019-01-20] MEDS: OLANZAPINE 10MG TABLET PO SCH (10:28)
[2019-01-20] MEDS: NICOTINE 14MG PATCH TD SCH (10:28)
[2019-01-20] MEDS: GABAPENTIN 300MG CAPSULE PO SCH ×2 (10:28→17:00)
[2019-01-20] MEDS: PANTOPRAZOLE SODIUM 40 MG/VIAL IV SCH ×2 (10:37→21:35)
[2019-01-20 11:45] LABS: T4 FREE 1.85 ng/dL (0.76-1.46)
[2019-01-20] MEDS: IPRATROPIUM BROMIDE (0.02%) 0.5MG/2.5ML NEB HHN SCH ×3 (12:03→20:29)
[2019-01-20] MEDS: BUDESONIDE 0.5MG/2ML NEB HHN SCH ×2 (12:04→20:29)
[2019-01-20 13:30] LABS: PLATELET ESTIMATE NORMAL
[2019-01-20] MEDS: METOCLOPRAMIDE HCL 10MG/2ML VIAL IV SCH ×2 (13:52→18:40)
[2019-01-20] MEDS: PIPERACILLIN/TAZ 3.375G PREMIX 50 ML IV SCH ×3 (13:53→21:35)
[2019-01-20] MEDS: ESMOLOL 2500MG PREMIX 250 ML IV PRN (13:54)
[2019-01-20] MEDS: HYDROMORPHONE HCL/PF 2MG/ML CPJ IV PRN (17:10)
[2019-01-20] MEDS ORDERED: DIGOXIN 500MCG/2ML AMP IV SCH (18:00)
[2019-01-20] MEDS: VALPROATE SODIUM IV SCH (18:40)
[2019-01-20] MEDS: SODIUM CHLORIDE 0.9% IV SCH (18:40)
[2019-01-20] MEDS: TRAZODONE HCL 50MG TABLET PO SCH (21:00)
[2019-01-21] VITALS (69 sets, daily range): BP systolic 81–143; BP diastolic 46–95
[2019-01-21] MEDS: METOCLOPRAMIDE HCL 10MG/2ML VIAL IV SCH ×4 (00:56→19:40)
[2019-01-21] MEDS: LORAZEPAM 2MG/ML CPJ IV PRN ×2 (01:21→08:10)
[2019-01-21] MEDS: IPRATROPIUM BROMIDE (0.02%) 0.5MG/2.5ML NEB HHN SCH ×4 (02:16→20:08)
[2019-01-21] MEDS: PIPERACILLIN/TAZ 3.375G PREMIX 50 ML IV SCH ×4 (03:27→20:47)
[2019-01-21] MEDS: ESMOLOL 2500MG PREMIX 250 ML IV PRN ×2 (04:37→16:14)
[2019-01-21 05:54] LABS: CHLORIDE 94 mEq/L (98-107)
[2019-01-21] MEDS: SODIUM CHLORIDE 0.9% INJ 3ML FLUSH IVF SCH ×3 (06:00→22:00)
[2019-01-21] MEDS: METHYLPREDNISOLONE SOD SUCC 40 MG/ML VIAL IV SCH ×2 (06:33→19:40)
[2019-01-21] MEDS: VALPROATE SODIUM IV SCH ×2 (06:33→19:40)
[2019-01-21] MEDS: SODIUM CHLORIDE 0.9% IV SCH ×2 (06:33→19:40)
[2019-01-21] MEDS: BUDESONIDE 0.5MG/2ML NEB HHN SCH ×2 (08:24→20:08)
[2019-01-21] MEDS: GABAPENTIN 300MG CAPSULE PO SCH ×2 (09:00→17:00)
[2019-01-21] MEDS: METOPROLOL TARTRATE 50MG TABLET PO SCH ×2 (09:00→21:00)
[2019-01-21] MEDS: NICOTINE 14MG PATCH TD SCH (11:02)
[2019-01-21] MEDS: ENOXAPARIN 40MG/0.4ML SYR SUBCUT SCH (11:02)
[2019-01-21] MEDS: PANTOPRAZOLE SODIUM 40 MG/VIAL IV SCH ×2 (11:02→23:10)
[2019-01-21 11:33] LABS: BG BASE EXCESS 4.2 mmol/L (-2.0-2.0); BG CARBOXYHEMOGLOBIN 0.4 % (0.5-1.5); BG DEOXYHEMOGLOBIN 3.5 % (0.0-5.0); BG FRACTION INSPIRED OXYGEN 28; BG HCO3 ACT 30.9 mmol/L (22.0-26.0); BG METHEMOGLOBIN 0.3 % (0.0-1.5); BG OXYGEN SATURATION 96.5 % (92.0-98.5); BG OXYHEMOGLOBIN 95.8 % (94.0-97.0); BG PCO2 55.5 mmHg (35.0-45.0); BG PH 7.364 (7.350-7.450); BG PO2 92.7 mmHg (75.0-100.0); BG SAMPLE SITE RIGHT BRACHIAL; BG TOTAL HEMOGLOBIN 13.8 g/dL (12.0-18.0); BG VENT MODE NASAL CANNULA
[2019-01-21] MEDS: OLANZAPINE 10 MG/VIAL IM SCH ×2 (12:36→20:47)
[2019-01-21] MEDS: SODIUM CHLORIDE 0.45% 1,000 ML IV SCH ×2 (12:37→21:40)
[2019-01-21] MEDS ORDERED: DIATR MEGLU/DIATRIZOATE SOLN 120ML ONE (13:29)
[2019-01-21] MEDS: TRAZODONE HCL 50MG TABLET PO SCH (21:00)
[2019-01-22] VITALS (77 sets, daily range): BP systolic 69–133; BP diastolic 16–89
[2019-01-22 00:34] LABS: BG BASE EXCESS 7.1 mmol/L (-2.0-2.0); BG CARBOXYHEMOGLOBIN 0.2 % (0.5-1.5); BG DEOXYHEMOGLOBIN 4.3 % (0.0-5.0); BG FRACTION INSPIRED OXYGEN 28; BG HCO3 ACT 33.6 mmol/L (22.0-26.0); BG METHEMOGLOBIN 0.4 % (0.0-1.5); BG OXYGEN SATURATION 95.7 % (92.0-98.5); BG OXYHEMOGLOBIN 95.1 % (94.0-97.0); BG PCO2 55.8 mmHg (35.0-45.0); BG PH 7.397 (7.350-7.450); BG PO2 78.8 mmHg (75.0-100.0); BG SAMPLE SITE LEFT RADIAL; BG TOTAL HEMOGLOBIN 13.3 g/dL (12.0-18.0); BG VENT MODE NASAL CANNULA
[2019-01-22] MEDS ORDERED: OLANZAPINE 10 MG/VIAL IM SCH (02:00)
[2019-01-22] MEDS: IPRATROPIUM BROMIDE (0.02%) 0.5MG/2.5ML NEB HHN SCH ×4 (02:16→21:40)
[2019-01-22] MEDS: PIPERACILLIN/TAZ 3.375G PREMIX 50 ML IV SCH ×4 (02:45→20:43)
[2019-01-22] MEDS: ESMOLOL 2500MG PREMIX 250 ML IV PRN ×2 (03:46→13:32)
[2019-01-22] MEDS: LORAZEPAM 2MG/ML CPJ IV PRN ×2 (04:15→21:19)
[2019-01-22] MEDS: SODIUM CHLORIDE 0.9% INJ 3ML FLUSH IVF SCH ×3 (05:30→21:13)
[2019-01-22] MEDS: VALPROATE SODIUM IV SCH ×2 (06:23→17:22)
[2019-01-22] MEDS: METHYLPREDNISOLONE SOD SUCC 40 MG/ML VIAL IV SCH (06:23)
[2019-01-22] MEDS: SODIUM CHLORIDE 0.9% IV SCH ×2 (06:23→17:22)
[2019-01-22] MEDS: METOCLOPRAMIDE HCL 10MG/2ML VIAL IV SCH ×5 (06:49→23:31)
[2019-01-22] MEDS: SODIUM CHLORIDE 0.45% 1,000 ML IV SCH ×2 (08:00→15:57)
[2019-01-22] MEDS: BUDESONIDE 0.5MG/2ML NEB HHN SCH (08:00)
[2019-01-22] MEDS ORDERED: LIDOCAINE HCL 1% 20ML VIAL (Pyxis) INJ ONE (08:12)
[2019-01-22] MEDS: NICOTINE 14MG PATCH TD SCH (08:59)
[2019-01-22] MEDS: GABAPENTIN 300MG CAPSULE PO SCH ×2 (09:00→16:00)
[2019-01-22] MEDS: METOPROLOL TARTRATE 50MG TABLET PO SCH ×2 (09:00→20:47)
[2019-01-22] MEDS: ENOXAPARIN 40MG/0.4ML SYR SUBCUT SCH (09:03)
[2019-01-22] MEDS: PANTOPRAZOLE SODIUM 40 MG/VIAL IV SCH ×2 (09:09→21:19)
[2019-01-22] MEDS ORDERED: DIATR MEGLU/DIATRIZOATE SOLN 30ML ONE (12:28)
[2019-01-22] MEDS: TRAZODONE HCL 50MG TABLET PO SCH (20:47)
[2019-01-22 22:36] LABS: BASOPHILS % 0.5 % (0.0-2.0); EOSINOPHILS % 0.1 % (0.0-5.0); HEMATOCRIT. 36.1 % (36.0-48.0); HEMOGLOBIN. 11.6 g/dL (12.0-16.0); LYMPHOCYTES % 11.6 % (20.0-50.0); MEAN CORPUSCULAR HEMOGLOBIN 29.4 pg (28.0-32.0); MEAN CORPUSCULAR VOLUME 91.5 fL (81.0-99.0); MEAN PLATELET VOLUME 8.1 fl (7.4-10.4); MONOCYTES % 7.6 % (2.0-8.0); NEUTROPHILS % 80.2 % (40.0-76.0); PLATELET 303 x1000/uL (130-400); RED BLOOD CELL COUNT 3.94 mill/uL (4.2-5.4); RED CELL DISTRIBUTION WIDTH 14.1 % (11.6-14.6)
[2019-01-22 22:42] LABS: CHLORIDE 101 mEq/L (98-107)
[2019-01-23] VITALS (81 sets, daily range): BP systolic 85–154; BP diastolic 47–103
[2019-01-23] MEDS: ESMOLOL 2500MG PREMIX 250 ML IV PRN ×2 (01:29→21:50)
[2019-01-23] MEDS: IPRATROPIUM BROMIDE (0.02%) 0.5MG/2.5ML NEB HHN SCH ×4 (02:50→20:16)
[2019-01-23] MEDS: SODIUM CHLORIDE 0.9% INJ 3ML FLUSH IVF SCH ×3 (05:00→21:15)
[2019-01-23] MEDS: VALPROATE SODIUM IV SCH ×2 (05:06→18:04)
[2019-01-23] MEDS: SODIUM CHLORIDE 0.9% IV SCH ×2 (05:06→18:04)
[2019-01-23] MEDS: METOCLOPRAMIDE HCL 10MG/2ML VIAL IV SCH ×3 (05:07→18:04)
[2019-01-23] MEDS: PIPERACILLIN/TAZ 3.375G PREMIX 50 ML IV SCH ×4 (07:38→21:27)
[2019-01-23] MEDS: METOPROLOL TARTRATE 50MG TABLET PO SCH ×3 (08:40→21:00)
[2019-01-23] MEDS: GABAPENTIN 300MG CAPSULE PO SCH ×2 (08:40→16:02)
[2019-01-23] MEDS: SODIUM CHLORIDE 0.45% 1,000 ML IV SCH ×2 (09:00→21:28)
[2019-01-23] MEDS ORDERED: PREDNISONE 20MG TABLET PO SCH (09:00)
[2019-01-23] MEDS: NICOTINE 14MG PATCH TD SCH (09:51)
[2019-01-23] MEDS: PANTOPRAZOLE SODIUM 40 MG/VIAL IV SCH ×2 (09:51→21:27)
[2019-01-23] MEDS: ENOXAPARIN 40MG/0.4ML SYR SUBCUT SCH (09:52)
[2019-01-23 10:08] LABS: HEMATOCRIT. 42.9 % (36.0-48.0); HEMOGLOBIN. 13.6 g/dL (12.0-16.0); MEAN CORPUSCULAR HEMOGLOBIN 29.4 pg (28.0-32.0); MEAN CORPUSCULAR VOLUME 92.4 fL (81.0-99.0); MEAN PLATELET VOLUME 8.1 fl (7.4-10.4); PLATELET 324 x1000/uL (130-400); RED BLOOD CELL COUNT 4.65 mill/uL (4.2-5.4); RED CELL DISTRIBUTION WIDTH 13.9 % (11.6-14.6)
[2019-01-23 10:10] LABS: BG CARBOXYHEMOGLOBIN 0.3 % (0.5-1.5); BG DEOXYHEMOGLOBIN 9.5 % (0.0-5.0); BG FRACTION INSPIRED OXYGEN 36; BG HCO3 ACT 37.3 mmol/L (22.0-26.0); BG METHEMOGLOBIN 0.5 % (0.0-1.5); BG OXYGEN SATURATION 90.4 % (92.0-98.5); BG OXYHEMOGLOBIN 89.7 % (94.0-97.0); BG PCO2 75.2 mmHg (35.0-45.0); BG PH 7.313 (7.350-7.450); BG PO2 61.8 mmHg (75.0-100.0); BG SAMPLE SITE RIGHT BRACHIAL; BG TOTAL HEMOGLOBIN 14.2 g/dL (12.0-18.0); BG VENT MODE NASAL CANNULA
[2019-01-23 10:12] LABS: CHLORIDE 103 mEq/L (98-107)
[2019-01-23 10:17] LABS: PHOSPHORUS 3.6 mg/dL (2.5-4.9)
[2019-01-23] MEDS ORDERED: METHYLPREDNISOLONE SOD SUCC 40 MG/ML VIAL IV NR (11:30)
[2019-01-23] MEDS: METOPROLOL TARTRATE 5MG/5ML VIAL IV PRN (11:56)
[2019-01-23] MEDS: DIGOXIN 125MCG TABLET PO NR ×2 (12:00→15:15)
[2019-01-23 12:22] LABS: PLATELET ESTIMATE NORMAL
[2019-01-23] MEDS: BUDESONIDE 0.5MG/2ML NEB HHN SCH ×2 (13:04→20:16)
[2019-01-23] MEDS: OLANZAPINE 10MG TABLET PO SCH (18:38)
[2019-01-23] MEDS: ONDANSETRON HCL 4MG/2ML INJ IV PRN (19:24)
[2019-01-23] MEDS: TRAZODONE HCL 50MG TABLET PO SCH (21:00)
[2019-01-23] MEDS: HYDROMORPHONE HCL/PF 2MG/ML CPJ IV PRN (22:59)
[2019-01-24] VITALS (65 sets, daily range): BP systolic 98–157; BP diastolic 61–92
[2019-01-24] MEDS: METOCLOPRAMIDE HCL 10MG/2ML VIAL IV SCH ×4 (00:28→17:52)
[2019-01-24] MEDS: IPRATROPIUM BROMIDE (0.02%) 0.5MG/2.5ML NEB HHN SCH ×3 (01:32→13:11)
[2019-01-24] MEDS: PIPERACILLIN/TAZ 3.375G PREMIX 50 ML IV SCH ×3 (02:24→14:43)
[2019-01-24] MEDS: LORAZEPAM 2MG/ML CPJ IV PRN (04:21)
[2019-01-24] MEDS: SODIUM CHLORIDE 0.9% INJ 3ML FLUSH IVF SCH ×2 (05:34→12:52)
[2019-01-24 05:41] LABS: BASOPHILS % 0.1 % (0.0-2.0); EOSINOPHILS % 0.2 % (0.0-5.0); HEMATOCRIT. 36.2 % (36.0-48.0); HEMOGLOBIN. 11.7 g/dL (12.0-16.0); LYMPHOCYTES % 8.9 % (20.0-50.0); MEAN CORPUSCULAR HEMOGLOBIN 29.4 pg (28.0-32.0); MEAN CORPUSCULAR VOLUME 91.3 fL (81.0-99.0); MEAN PLATELET VOLUME 8.7 fl (7.4-10.4); MONOCYTES % 5.8 % (2.0-8.0); PLATELET 271 x1000/uL (130-400); RED BLOOD CELL COUNT 3.96 mill/uL (4.2-5.4); RED CELL DISTRIBUTION WIDTH 13.8 % (11.6-14.6)
[2019-01-24] MEDS: VALPROATE SODIUM IV SCH ×2 (06:02→18:20)
[2019-01-24] MEDS: SODIUM CHLORIDE 0.9% IV SCH ×2 (06:02→18:20)
[2019-01-24 06:05] LABS: CHLORIDE 96 mEq/L (98-107)
[2019-01-24 06:15] LABS: PHOSPHORUS 1.6 mg/dL (2.5-4.9)
[2019-01-24] MEDS: METOPROLOL TARTRATE 50MG TABLET PO SCH (07:08)
[2019-01-24] MEDS: BUDESONIDE 0.5MG/2ML NEB HHN SCH (08:25)
[2019-01-24 08:56] LABS: BG BASE EXCESS 11.3 mmol/L (-2.0-2.0); BG CARBOXYHEMOGLOBIN 0.5 % (0.5-1.5); BG DEOXYHEMOGLOBIN 2.5 % (0.0-5.0); BG FRACTION INSPIRED OXYGEN 50; BG METHEMOGLOBIN 0.2 % (0.0-1.5); BG OXYGEN SATURATION 97.5 % (92.0-98.5); BG OXYHEMOGLOBIN 96.8 % (94.0-97.0); BG PH 7.301 (7.350-7.450); BG SAMPLE SITE RIGHT BRACHIAL; BG TOTAL HEMOGLOBIN 12.5 g/dL (12.0-18.0); BG VENT MODE MASK - VENTI
[2019-01-24] MEDS: OLANZAPINE 10MG TABLET PO SCH (09:00)
[2019-01-24] MEDS: GABAPENTIN 300MG CAPSULE PO SCH ×2 (09:00→16:22)
[2019-01-24] MEDS: PANTOPRAZOLE SODIUM 40 MG/VIAL IV SCH (10:05)
[2019-01-24] MEDS: ENOXAPARIN 40MG/0.4ML SYR SUBCUT SCH (10:05)
[2019-01-24] MEDS: NICOTINE 14MG PATCH TD SCH (10:05)
[2019-01-24] MEDS ORDERED: NYSTATIN POWDER 15GM TOP SCH ×2 (10:30→12:00)
[2019-01-24] MEDS ORDERED: MAGNESIUM 2 G PREMIX 50 ML IV NR (11:30)
[2019-01-24] MEDS: METOPROLOL TARTRATE 5MG/5ML VIAL IV PRN ×2 (12:00→16:22)
[2019-01-24] MEDS ORDERED: POTASSIUM PHOS,M-BASIC-D-BASIC 15 MMOL in DEXT 5% WATER 245 ML IV NR (12:00)
[2019-01-24] MEDS: ONDANSETRON HCL 4MG/2ML INJ IV PRN (12:14)
[2019-01-24 12:42] LABS: BG BILEVEL POS AIRWAY PRESSURE 15/5; BG CARBOXYHEMOGLOBIN 0.5 % (0.5-1.5); BG DEOXYHEMOGLOBIN 6.3 % (0.0-5.0); BG FRACTION INSPIRED OXYGEN 35; BG HCO3 ACT 40.5 mmol/L (22.0-26.0); BG METHEMOGLOBIN 0.2 % (0.0-1.5); BG OXYGEN SATURATION 93.7 % (92.0-98.5); BG PCO2 66.4 mmHg (35.0-45.0); BG PH 7.403 (7.350-7.450); BG PO2 67.9 mmHg (75.0-100.0); BG SAMPLE SITE RIGHT BRACHIAL; BG TOTAL HEMOGLOBIN 12.7 g/dL (12.0-18.0); BG VENT MODE MASK - BIPAP; BG VENT RATE 16 set
[2019-01-24] MEDS: HYDROMORPHONE HCL/PF 2MG/ML CPJ IV PRN (12:56)
[2019-01-24] MEDS ORDERED: METOPROLOL TARTRATE 5MG/5ML VIAL IV NR (17:55)
== END 2019-01-24 19:10 | DRG 871 ==
LOC: ER 12:23 → EDBEDREQTM 17:02 → EDBEDREQSVC 17:02 → EDBEDREQ 17:02 → EDBEDREQSVC 01-10 09:25 → EDBEDREQTM 01-10 09:25 → EDBEDREQSVC 01-10 09:29 → ENRESERV 01-10 20:16 → 7WST 01-10 22:26 → 5EST 01-19 22:30 → CVICU 01-20 08:20
PROVIDERS: ADMIT Family Medicine; ATTEND Family Medicine
PROC: 5A09357 Assistance with Respiratory Ventilation, Less than 24 Consecutive Hours, Continuous Positive Airway Pressure (ICD-10-PCS; 2019-01-10)
PROC: 0DHA3UZ Insertion of Feeding Device into Jejunum, Percutaneous Approach (ICD-10-PCS; 2019-01-15)
PROC: 5A09357 Assistance with Respiratory Ventilation, Less than 24 Consecutive Hours, Continuous Positive Airway Pressure (ICD-10-PCS; 2019-01-19)
PROC: 5A09357 Assistance with Respiratory Ventilation, Less than 24 Consecutive Hours, Continuous Positive Airway Pressure (ICD-10-PCS; 2019-01-20)
PROC: 5A09357 Assistance with Respiratory Ventilation, Less than 24 Consecutive Hours, Continuous Positive Airway Pressure (ICD-10-PCS; 2019-01-21)
PROC: 02H633Z Insertion of Infusion Device into Right Atrium, Percutaneous Approach (ICD-10-PCS; principal; 2019-01-22)
PROC: B244ZZZ Ultrasonography of Right Heart (ICD-10-PCS; 2019-01-22)
PROC: 5A09357 Assistance with Respiratory Ventilation, Less than 24 Consecutive Hours, Continuous Positive Airway Pressure (ICD-10-PCS; 2019-01-23)
PROC: 5A09357 Assistance with Respiratory Ventilation, Less than 24 Consecutive Hours, Continuous Positive Airway Pressure (ICD-10-PCS; 2019-01-24)
DX: A41.9 Sepsis, unspecified organism (principal); G93.41 Metabolic encephalopathy; J69.0 Pneumonitis due to inhalation of food and vomit; J96.22 Acute and chronic respiratory failure with hypercapnia; K56.2 Volvulus; B49 Unspecified mycosis; J44.1 Chronic obstructive pulmonary disease with (acute) exacerbation; K56.7 Ileus, unspecified; N30.00 Acute cystitis without hematuria; R64 Cachexia; E46 Unspecified protein-calorie malnutrition; Z68.1 Body mass index [BMI] 19.9 or less, adult; G89.29 Other chronic pain; I10 Essential (primary) hypertension; R62.7 Adult failure to thrive; F17.210 Nicotine dependence, cigarettes, uncomplicated; F31.9 Bipolar disorder, unspecified; K66.0 Peritoneal adhesions (postprocedural) (postinfection); G62.9 Polyneuropathy, unspecified; M54.5 Low back pain; T38.0X5A Adverse effect of glucocorticoids and synthetic analogues, initial encounter; Z74.01 Bed confinement status; Z82.49 Family history of ischemic heart disease and other diseases of the circulatory system; Z93.1 Gastrostomy status; Z98.84 Bariatric surgery status; Y92.89 Other specified places as the place of occurrence of the external cause
CPT/HCPCS: 36415; 36569; 36600; 70551; 71045; 71275; 72146; 72148; 74018; 74176; 74246; 74250; 76937; 80048; 80061; 80162; 80305; 80320; 82140; 82375; 82550; 82553; 82607; 82805; 82962; 83520; 83605; 83735; 84100; 84134; 84439; 84443; 84481; 84484; 84703; 93005; 93306; 94640; 94660; 96365; 96366; 96375; 97110; 97162; 97167; 97530; 99291; A6261; C1725; C1758; C9113; J0330; J0690; J0696; J1160; J1170; J1200; J1650; J1885; J2060; J2250; J2270; J2310; J2405; J2543; J2765; J2920; J2930; J3010; J3475; J3490; J7030; J7040; J7042; J7050; J7060; J7512; J7611; J7620; J7626; J8597; Q9963; Q9967; G0480